=== PATIENT | female | born 1985 | race Caucasian/White ===

== ENCOUNTER 2018-05-01 13:32 | Emergency (ER) | payer BC ==
[~2018-05-01] VITALS: Ht 170.2 cm; Wt 109.1 kg
[2018-05-01 13:38] VITALS: BP 133/73; PULSE 80; TEMP 99.3
[2018-05-01] MEDS ORDERED: NUVARING VAG RING VG (13:40)
[2018-05-01] MEDS ORDERED: PROZAC60 MG PO (13:40)
[2018-05-01] MEDS ORDERED: CEPHALEXIN500 M1 PO (15:01)
== END 2018-05-01 15:41 | disposition home or self-care (01) ==
LOC: COL.ER 13:32
DX: S66.921A Laceration of unspecified muscle, fascia and tendon at wrist and hand level, right hand, initial encounter (principal); Z23 Encounter for immunization; W25.XXXA Contact with sharp glass, initial encounter; Y92.410 Unspecified street and highway as the place of occurrence of the external cause
CPT/HCPCS: Q4021